=== PATIENT | female | born 1985 | race Two or more races ===

== ENCOUNTER 2018-09-08 09:15 | Emergency (ER) | payer MEDICAID ==
[~2018-09-08] VITALS: Ht 154.9 cm; Wt 71.0 kg
[2018-09-08 12:18] VITALS: BP 136/83
== END 2018-09-08 14:38 | disposition left against medical advice (07) ==
LOC: ER 09:15
DX: Z53.21 Procedure and treatment not carried out due to patient leaving prior to being seen by health care provider (principal)

== ENCOUNTER 2019-03-05 20:47 | Inpatient (IN) | payer MEDICAID ==
[~2019-03-05] VITALS: Ht 157.5 cm; Wt 77.1 kg
[~2019-03-05 20:47] MED LIST: PREN-55 PO
[2019-03-05] MEDS ORDERED: DEXT 5%/LR + PITOCIN 20UNITS/L 1,000 ML IV SCH ×2 (21:17→23:11)
[2019-03-05] MEDS ORDERED: CARBOPROST TROMETHAMINE 250 MCG/ML AMPUL IM PRN (21:30)
[2019-03-05] MEDS ORDERED: METHYLERGONOVINE MALEATE 0.2 MG/ML IM PRN (21:30)
[2019-03-05] MEDS ORDERED: BUTORPHANOL TARTRATE 2 MG/ML VIAL IV PRN (21:30)
[2019-03-05] MEDS: LACTATED RINGERS 1,000 ML IV SCH ×2 (21:34→22:16)
[2019-03-05] MEDS ORDERED: PENICILLIN G POTASSIUM 5 MMU in DEXT 5% WATER 100 ML IV SCH (22:00)
[2019-03-05 22:07] LABS: BASOPHILS % 0.3 % (0.0-2.0); EOSINOPHILS % 0.5 % (0.0-5.0); HEMATOCRIT. 31.9 % (36.0-48.0); HEMOGLOBIN. 10.6 g/dL (12.0-16.0); LYMPHOCYTES % 20.1 % (20.0-50.0); MEAN CORPUSCULAR HEMOGLOBIN 26.9 pg (28.0-32.0); MEAN CORPUSCULAR VOLUME 80.5 fL (81.0-99.0); MEAN PLATELET VOLUME 10.3 fl (7.4-10.4); MONOCYTES % 5.7 % (2.0-8.0); NEUTROPHILS % 73.4 % (40.0-76.0); PLATELET 168 x1000/uL (130-400); RED BLOOD CELL COUNT 3.96 mill/uL (4.2-5.4); RED CELL DISTRIBUTION WIDTH 14.6 % (11.6-14.6)
[2019-03-05 22:13] LABS: CLARITY URINE CLOUDY (CLEAR); COLOR URINE YELLOW (YELLOW); KETONES URINE TRACE (NEGATIVE); LEUKOCYTE ESTERASE URINE 3+ (NEGATIVE); NITRITE URINE NEGATIVE (NEGATIVE); OCCULT BLOOD URINE 1+ (NEGATIVE); PH URINE 6.5 (4.5-8.0); PROTEIN URINE TRACE (NEGATIVE); SPECIFIC GRAVITY URINE 1.017 (1.005-1.030)
[2019-03-05 22:23] LABS: D-DIMER 1.43 mg/L FEU (<0.50); INR 0.9; PARTIAL THROMBOPLASTIN TIME 28.2 sec (23.4-31.0); PROTHROMBIN TIME 9.6 sec (9.6-11.0)
[2019-03-05 22:30] LABS: CHLORIDE 111 mEq/L (98-107)
[2019-03-05 22:40] LABS: *AMPHETAMINES SCREEN URINE NEGATIVE (NEGATIVE); *BARBITURATES SCREEN URINE NEGATIVE (NEGATIVE)
[2019-03-05 22:41] LABS: *BENZODIAZEPINES SCREEN URINE NEGATIVE (NEGATIVE); *COCAINE SCREEN URINE NEGATIVE (NEGATIVE); METHADONE URINE SCREEN NEGATIVE (NEGATIVE); OPIATES URINE SCREEN NEGATIVE (NEGATIVE); PHENCYCLIDINE URINE SCREEN NEGATIVE (NEGATIVE)
[2019-03-05 22:42] LABS: CANNABINOID URINE SCREEN NEGATIVE (NEGATIVE)
[2019-03-05] MEDS ORDERED: LIDOCAINE HCL 1% 20ML VIAL (Pyxis) INJ ONE (22:47)
[2019-03-05 23:00] LABS: HEPATITIS B SURFACE ANTIGEN NEGATIVE
[2019-03-05] MEDS ORDERED: BENZOCAINE/LANOLIN/ALOE VERA SPRAY TOP PRN (23:15)
[2019-03-05] MEDS ORDERED: DIPHENHYDRAMINE 25MG CAPSULE PO PRN (23:15)
[2019-03-05] MEDS ORDERED: GLYCERIN/WITCH HAZEL LEAF MEDICATED PAD TOP PRN (23:15)
[2019-03-05] MEDS ORDERED: RHO(D) IMMUNE GLOBULIN 300 MCG/SYR IM PRN (23:15)
[2019-03-05] MEDS ORDERED: IBUPROFEN 400MG TABLET PO PRN (23:15)
[2019-03-05] MEDS ORDERED: HEMORRHOIDAL SUPP PR PRN (23:15)
[2019-03-05] MEDS ORDERED: METRONIDAZOLE 500MG TABLET PO ONE (23:15)
[2019-03-06 00:50] VITALS: BP 124/91
[2019-03-06 01:20] VITALS: BP 118/65
[2019-03-06 01:50] VITALS: BP 125/68
[2019-03-06] MEDS ORDERED: PENICILLIN G POTASSIUM 2.5 MMU in DEXTROSE 5% WATER 50 ML IV SCH (02:00)
[2019-03-06 02:24] VITALS: BP 129/69
[2019-03-06] MEDS ORDERED: METRONIDAZOLE 500MG TABLET PO SCH (04:15)
[2019-03-06] MEDS ORDERED: TETANUS, DIPHTHERIA, PERTUSSIS VAC/PF 0.5ML (>7YR OLD) IM ONE (06:00)
[2019-03-06 07:30] VITALS: BP 121/76
[2019-03-06 07:32] LABS: BASOPHILS % 0.2 % (0.0-2.0); EOSINOPHILS % 0.2 % (0.0-5.0); HEMATOCRIT. 24.3 % (36.0-48.0); HEMOGLOBIN. 8.3 g/dL (12.0-16.0); MEAN CORPUSCULAR HEMOGLOBIN 27.6 pg (28.0-32.0); MEAN CORPUSCULAR VOLUME 80.6 fL (81.0-99.0); MEAN PLATELET VOLUME 10.9 fl (7.4-10.4); MONOCYTES % 6.5 % (2.0-8.0); NEUTROPHILS % 80.1 % (40.0-76.0); PLATELET 132 x1000/uL (130-400); RED BLOOD CELL COUNT 3.02 mill/uL (4.2-5.4); RED CELL DISTRIBUTION WIDTH 14.8 % (11.6-14.6)
[2019-03-06] MEDS: FERROUS SULFATE 325MG TABLET PO SCH ×2 (08:39→17:36)
[2019-03-06] MEDS: PRENATAL VIT/FE FUMARATE/FA TABLET PO SCH (08:39)
[2019-03-06] MEDS: ACETAMINOPHEN WITH CODEINE 300/30MG TABLET PO PRN ×2 (08:44→17:36)
[2019-03-06 20:00] VITALS: BP 132/84
[2019-03-07 04:00] VITALS: BP 129/68
[2019-03-07] MEDS: ACETAMINOPHEN WITH CODEINE 300/30MG TABLET PO PRN ×2 (05:20→11:38)
[2019-03-07] MEDS: PRENATAL VIT/FE FUMARATE/FA TABLET PO SCH (07:56)
[2019-03-07] MEDS: FERROUS SULFATE 325MG TABLET PO SCH (07:56)
[2019-03-07 08:00] VITALS: BP 136/87
== END 2019-03-07 11:30 | disposition home or self-care (01) | DRG 560 ==
LOC: 8 EST LDRP 20:47 → OBSVTOIN 20:47 → 8EST 03-06 01:00
PROVIDERS: ADMIT Specialist; ATTEND Specialist
PROC: 10E0XZZ Delivery of Products of Conception, External Approach (ICD-10-PCS; principal; 2019-03-05)
PROC: 0W8NXZZ Division of Female Perineum, External Approach (ICD-10-PCS; 2019-03-05)
DX: O98.32 Other infections with a predominantly sexual mode of transmission complicating childbirth (principal); A59.9 Trichomoniasis, unspecified; O99.03 Anemia complicating the puerperium; Z3A.39 39 weeks gestation of pregnancy; Z37.0 Single live birth
CPT/HCPCS: 36415; 80305; 81003; 84550; 85379; 85384; 86592; 86703; 86762; 86850; 86900; 87340; 90715; 99281; G0378; J0595; J2540; J2590; J3490; J7060; J7120

== ENCOUNTER 2020-08-25 15:34 | Emergency (ER) | payer MEDICAID ==
[~2020-08-25] VITALS: Ht 154.9 cm; Wt 68.0 kg
[2020-08-25] MEDS ORDERED: ACETAMINOPHEN 325MG TABLET PO STA (16:05)
[2020-08-25 16:25] LABS: CLARITY URINE CLEAR (CLEAR); COLOR URINE YELLOW (YELLOW); KETONES URINE TRACE (NEGATIVE); LEUKOCYTE ESTERASE URINE 2+ (NEGATIVE); NITRITE URINE NEGATIVE (NEGATIVE); OCCULT BLOOD URINE NEGATIVE (NEGATIVE); PH URINE 7.5 (4.5-8.0); PROTEIN URINE TRACE (NEGATIVE); SPECIFIC GRAVITY URINE 1.027 (1.005-1.030)
[2020-08-25] MEDS ORDERED: FAMOTIDINE 20MG TABLET PO ONE (16:30)
[2020-08-25 18:14] LABS: BASOPHILS % 0.6 % (0.0-2.0); EOSINOPHILS % 0.7 % (0.0-5.0); HEMATOCRIT. 36.9 % (36.0-48.0); HEMOGLOBIN. 12.5 g/dL (12.0-16.0); LYMPHOCYTES % 18.6 % (20.0-50.0); MEAN CORPUSCULAR HEMOGLOBIN 27.6 pg (28.0-32.0); MEAN CORPUSCULAR VOLUME 81.5 fL (81.0-99.0); MEAN PLATELET VOLUME 9.6 fl (7.4-10.4); MONOCYTES % 5.1 % (2.0-8.0); PLATELET 233 x1000/uL (130-400); RED BLOOD CELL COUNT 4.52 mill/uL (4.2-5.4); RED CELL DISTRIBUTION WIDTH 14.7 % (11.6-14.6)
[2020-08-25 18:24] LABS: CHLORIDE 108 mEq/L (98-107)
[2020-08-25 18:48] LABS: B-HCG QUANTITATIVE 2002 mIU/mL (<3)
[2020-08-25 19:38] VITALS: BP 128/82
== END 2020-08-25 19:40 | disposition home or self-care (01) ==
LOC: ER 15:34
DX: O26.891 Other specified pregnancy related conditions, first trimester (principal); O23.31 Infections of other parts of urinary tract in pregnancy, first trimester; Z3A.01 Less than 8 weeks gestation of pregnancy; K80.20 Calculus of gallbladder without cholecystitis without obstruction; O16.1 Unspecified maternal hypertension, first trimester
CPT/HCPCS: 36415; 73110; 73130; 76705; 76801; 80053; 81003; 81025; 84702; 85025; 93005; 99285

== ENCOUNTER 2020-09-28 15:03 | Emergency (ER) | payer MEDICAID ==
[~2020-09-28] VITALS: Ht 167.6 cm; Wt 64.0 kg
[2020-09-28] MEDS ORDERED: ACETAMINOPHEN 325MG TABLET PO STA (15:58)
[2020-09-28 16:16] LABS: BASOPHILS % 0.4 % (0.0-2.0); EOSINOPHILS % 0.7 % (0.0-5.0); HEMOGLOBIN. 12.4 g/dL (12.0-16.0); LYMPHOCYTES % 17.3 % (20.0-50.0); MEAN CORPUSCULAR HEMOGLOBIN 27.3 pg (28.0-32.0); MEAN CORPUSCULAR VOLUME 81.6 fL (81.0-99.0); MEAN PLATELET VOLUME 9.8 fl (7.4-10.4); MONOCYTES % 6.6 % (2.0-8.0); PLATELET 198 x1000/uL (130-400); RED BLOOD CELL COUNT 4.53 mill/uL (4.2-5.4); RED CELL DISTRIBUTION WIDTH 15.1 % (11.6-14.6)
[2020-09-28 16:22] LABS: CHLORIDE 108 mEq/L (98-107); CLARITY URINE CLOUDY (CLEAR); COLOR URINE RED (YELLOW); KETONES URINE NEGATIVE (NEGATIVE); LEUKOCYTE ESTERASE URINE 1+ (NEGATIVE); NITRITE URINE NEGATIVE (NEGATIVE); OCCULT BLOOD URINE 3+ (NEGATIVE); PH URINE 5.5 (4.5-8.0); PROTEIN URINE 2+ (NEGATIVE); SPECIFIC GRAVITY URINE 1.024 (1.005-1.030)
[2020-09-28 16:45] LABS: B-HCG QUANTITATIVE 2004 mIU/mL (<3)
[2020-09-28] MEDS ORDERED: NITR-87 MT (19:04)
[2020-09-28 19:30] VITALS: BP 129/87
== END 2020-09-28 19:33 | disposition home or self-care (01) ==
LOC: ER 15:03
DX: O20.0 Threatened abortion (principal); N93.9 Abnormal uterine and vaginal bleeding, unspecified; N39.0 Urinary tract infection, site not specified; Z3A.14 14 weeks gestation of pregnancy
CPT/HCPCS: 36415; 76801; 80053; 81003; 81025; 84702; 85025; 86850; 86900; 88305; 93005; 99285

== ENCOUNTER 2022-06-24 20:28 | Emergency (ER) | payer MEDICAID ==
[~2022-06-24] VITALS: Ht 165.1 cm; Wt 75.0 kg
[~2022-06-24 20:28] MED LIST changes: +NITR-87 MT; -PREN-55 PO
[2022-06-24 22:32] VITALS: BP 154/91
== END 2022-06-24 22:32 | disposition home or self-care (01) ==
LOC: ER 21:12
DX: F18.10 Inhalant abuse, uncomplicated (principal); T59.91XA Toxic effect of unspecified gases, fumes and vapors, accidental (unintentional), initial encounter; Y92.9 Unspecified place or not applicable
CPT/HCPCS: 99283

== ENCOUNTER 2024-02-03 19:05 | Emergency (ER) | payer MEDICAID ==
[~2024-02-03] VITALS: Ht 157.5 cm; Wt 79.0 kg
[2024-02-03 19:48] VITALS: O2SAT 100
[2024-02-03 20:15] VITALS: BP 177/108
[2024-02-03] MEDS: KETOROLAC 30MG/ML VIAL IM ONE (20:15)
[2024-02-03] MEDS ORDERED: IBUP-2030 MT (21:55)
[2024-02-03 22:00] VITALS: PULSE 75; RESP 18; TEMP 98.4
== END 2024-02-03 22:21 | disposition home or self-care (01) ==
LOC: ER 19:05
DX: R51.9 Headache, unspecified (principal); M54.2 Cervicalgia; D64.9 Anemia, unspecified; I95.9 Hypotension, unspecified; F12.10 Cannabis abuse, uncomplicated; V49.49XA Driver injured in collision with other motor vehicles in traffic accident, initial encounter; Y93.89 Activity, other specified; Y92.89 Other specified places as the place of occurrence of the external cause; Y99.8 Other external cause status
CPT/HCPCS: 99285; 70450; 81025; 72125; 96372; J1885